=== PATIENT | female | born 1940 | race Caucasian/White ===

== ENCOUNTER 2017-07-19 17:47 | Emergency (ER) | payer MEDICARE, BC ==
[~2017-07-19] VITALS: Ht 154.9 cm; Wt 59.9 kg
[2017-07-19] MEDS ORDERED: HYDROCODONE/APAP 5-325MG TABLET PO ONE (18:00)
[2017-07-19] MEDS ORDERED: HYDROCODONE/APAP 5-325MG TABLET ONE (18:07)
--- NOTE | 2017-07-19 19:01 | NUR ---
DONITA ADMIN EARLIER, PT POSITIONED FOR COMFORT, PRESENTLY AWAITING FOR CT ESULTS, SBAR REPORT TO JOHNNIE GALLOWAY
--- NOTE | 2017-07-19 19:31 | NUR ---
called [facility] for transport. ETA 30 min. Trip #[id number]
[2017-07-19 20:13] VITALS: BP 144/69
--- NOTE | 2017-07-19 20:36 | NUR ---
Patient discharged to home in stable conditon. Written and verbal after care instructions given. Patient verbalizes understanding of instructions. Patient left ER via ambulnz. VSS. All belongings with pt.
== END 2017-07-19 20:42 | disposition home or self-care (01) ==
LOC: ER 17:52
DX: S22.31XA Fracture of one rib, right side, initial encounter for closed fracture (principal); S20.211A Contusion of right front wall of thorax, initial encounter; G89.29 Other chronic pain; M54.9 Dorsalgia, unspecified; Z88.0 Allergy status to penicillin; Z88.2 Allergy status to sulfonamides; Z88.1 Allergy status to other antibiotic agents; W06.XXXA Fall from bed, initial encounter; Y93.89 Activity, other specified; Y92.89 Other specified places as the place of occurrence of the external cause; Y99.8 Other external cause status
CPT/HCPCS: 71250; A4663

== ENCOUNTER 2017-11-29 12:43 | Emergency (ER) | payer MEDICARE, BC ==
[~2017-11-29] VITALS: Ht 154.9 cm; Wt 56.2 kg
--- NOTE | 2017-11-29 13:18 | NUR ---
PT IS IN ROOM #1B. DR EDWARDS EVALUATED THE PT.
[2017-11-29] MEDS ORDERED: IV NORMAL SALINE 1000 ML BAG IV ONE (13:30)
[2017-11-29 13:33] LABS: BASOPHILS % (AUTO) 0.2 % (0.0-2.0); EOSINOPHILS % (AUTO) 0.2 % (0.0-7.0); HEMATOCRIT 31.3 % (31.2-41.9); HEMOGLOBIN 10.9 g/dL (10.9-14.3); LYMPHOCYTES # (AUTO) 0.2 K/uL (20.0-40.0); LYMPHOCYTES % (AUTO) 2.3 % (20.5-51.5); MEAN CORPUSCULAR HEMOGLOBIN 31.9 uug (24.7-32.8); MEAN CORPUSCULAR HGB CONC 35 g/dL (32.3-35.6); MEAN CORPUSCULAR VOLUME 91.5 fL (75.5-95.3); MONOCYTES # (AUTO) 0.5 K/uL (2.0-10.0); MONOCYTES % (AUTO) 5.9 % (0.0-11.0); NEUTROPHILS # (AUTO) 7.4 K/uL (1.8-8.9); NEUTROPHILS % (AUTO) 91.4 % (38.5-71.5); PLATELET COUNT (AUTO) 246 K/uL (179-408); RED BLOOD CELL COUNT(AUTO) 3.42 MIL/uL (3.63-4.92); WHITE BLOOD COUNT (AUTO) 8.1 K/uL (3.8-11.8)
[2017-11-29 13:44] LABS: CARBON DIOXIDE 20 mmol/L (21-32); CHLORIDE 99 mmol/L (98-107); CREATININE 1.5 mg/dL (0.6-1.3); GLUCOSE 112 mg/dL (74-106); POTASSIUM 3.1 mmol/L (3.5-5.1); UREA NITROGEN, BLOOD 33 mg/dL (7-18)
[2017-11-29 13:50] LABS: ALANINE AMINOTRANSFERASE 32 U/L (14-59); ALKALINE PHOSPHATASE 86 U/L (50-136); ASPARTATE AMINOTRANSFERASE 35 U/L (15-37); BILIRUBIN,DIRECT 0.1 mg/dL (0.0-0.2); BILIRUBIN,TOTAL 0.3 mg/dL (0.2-1.0); LIPASE 61 U/L (73-393); TOTAL PROTEIN, SERUM 6.6 g/dL (6.4-8.2)
[2017-11-29] MEDS ORDERED: GLUC100017 PO (14:15)
[2017-11-29] MEDS ORDERED: LEVO1CAP3 PO (14:15)
[2017-11-29] MEDS ORDERED: MULT-1201 PO (14:15)
[2017-11-29] MEDS ORDERED: AMLO10TA6 PO (14:15)
[2017-11-29] MEDS ORDERED: NASOCORT (14:15)
[2017-11-29] MEDS ORDERED: PROP15DR EACHEYE (14:15)
[2017-11-29] MEDS ORDERED: PANT40TA2 PO (14:15)
[2017-11-29] MEDS ORDERED: POTA10TA15 PO (14:15)
[2017-11-29] MEDS ORDERED: PRAV20TA4 PO (14:15)
[2017-11-29] MEDS ORDERED: DIAZIDE PO (14:15)
[2017-11-29] MEDS ORDERED: BUPR300T52 PO (14:15)
[2017-11-29] MEDS ORDERED: FLUO20CA36 PO (14:15)
[2017-11-29] MEDS ORDERED: TRAZ-214 PO (14:15)
[2017-11-29] MEDS ORDERED: [UNRECOGNIZED DRUG - OTHER] PO (14:30)
[2017-11-29] MEDS ORDERED: SLOW FE IRON PO (14:30)
[2017-11-29] MEDS ORDERED: ASPI81TA31 PO (14:30)
[2017-11-29] MEDS ORDERED: CHOL200078 PO (14:30)
[2017-11-29] MEDS ORDERED: CALC500T3 PO (14:30)
[2017-11-29] MEDS ORDERED: CYAN500T2 PO (14:30)
[2017-11-29] MEDS ORDERED: POTASSIUM CHLORIDE 20 MEQ TAB.PRT.SR PO ONE (15:00)
[2017-11-29] MEDS ORDERED: POTASSIUM CHLORIDE 20 MEQ TAB.PRT.SR ONE (15:00)
[2017-11-29 15:10] VITALS: BP 110/68
--- NOTE | 2017-11-29 15:11 | NUR ---
DCD instructions and prescription given to pt. and who verbalized understanding. Pt. wheeled to the front and takne via private car by .
== END 2017-11-29 15:13 | disposition home or self-care (01) ==
LOC: ER 12:43
DX: E87.6 Hypokalemia (principal); R19.7 Diarrhea, unspecified; I10 Essential (primary) hypertension; E78.5 Hyperlipidemia, unspecified; K21.9 Gastro-esophageal reflux disease without esophagitis; G89.29 Other chronic pain; M54.9 Dorsalgia, unspecified; Z88.0 Allergy status to penicillin; Z88.1 Allergy status to other antibiotic agents; Z88.2 Allergy status to sulfonamides
CPT/HCPCS: 36415; 71045; 74176; 80048; 80076; 83690; 84484; 85025; 85730; 93005; 96360; 99285; A4663; J7030; 70030-TC

== ENCOUNTER 2017-12-13 16:52 | Emergency (ER) | payer MEDICARE, BC ==
[~2017-12-13] VITALS: Ht 154.9 cm; Wt 55.3 kg
[~2017-12-13 16:52] MED LIST: AMLO10TA6 PO; ASPI81TA31 PO; BUPR300T52 PO; CALC500T3 PO; CHOL200078 PO; CYAN500T2 PO; DIAZIDE PO; FLUO20CA36 PO; GLUC100017 PO; LEVO1CAP3 PO; MULT-1201 PO; NASOCORT; PANT40TA2 PO; POTA10TA15 PO; PRAV20TA4 PO; PROP15DR EACHEYE; SLOW FE IRON PO; TRAZ-214 PO; [UNRECOGNIZED DRUG - OTHER] PO
[2017-12-13] MEDS ORDERED: LIDOCAINE HCL 1% 20 ML VIAL TP ONE (17:15)
--- NOTE | 2017-12-13 17:30 | NUR ---
PTIS IN ROOM #2B. DR HESS EVALUATED THE PT.
[2017-12-13] MEDS ORDERED: TDAP DIPH,PERTUSS,TET VAC/PF 0.5 ML DISP.SYRIN IM ONE ×2 (17:45→17:50)
--- NOTE | 2017-12-13 18:15 | NUR ---
PT WAS D/C TO HOME. D/C INSTRUCTIONS GIVEN TO THE PT.
[2017-12-13 18:16] VITALS: BP 141/82
== END 2017-12-13 18:36 | disposition home or self-care (01) ==
LOC: ER 16:55
DX: S51.011A Laceration without foreign body of right elbow, initial encounter (principal); S20.211A Contusion of right front wall of thorax, initial encounter; I10 Essential (primary) hypertension; E78.5 Hyperlipidemia, unspecified; K21.9 Gastro-esophageal reflux disease without esophagitis; G89.29 Other chronic pain; M54.9 Dorsalgia, unspecified; Z88.0 Allergy status to penicillin; Z88.2 Allergy status to sulfonamides; Z88.1 Allergy status to other antibiotic agents; W10.9XXA Fall (on) (from) unspecified stairs and steps, initial encounter; Y93.89 Activity, other specified; Y92.89 Other specified places as the place of occurrence of the external cause; Y99.8 Other external cause status
CPT/HCPCS: 12002; 71250; 73080; 90471; 90715; 99284; J3490; A4663

== ENCOUNTER 2017-12-15 11:29 | Emergency (ER) | payer MEDICARE, BC ==
[~2017-12-15] VITALS: Ht 154.9 cm; Wt 55.3 kg
--- NOTE | 2017-12-15 11:47 | NUR ---
Dr cabral at the bedside for MSE. wound dressing on RT elbow sutures are removed by Md. Site has no S/S infection.
--- NOTE | 2017-12-15 11:55 | NUR ---
Patient discharged to home in stable conditon. Written and verbal after care instructions given. Patient verbalizes understanding of instructions.
--- NOTE | 2017-12-15 11:57 | NUR ---
Suture site cleaned and dressed per MD order.
--- NOTE | 2017-12-15 12:04 | NUR ---
Patient discharged to home in stable conditon. Written and verbal after care instructions given. Patient verbalizes understanding of instructions.
== END 2017-12-15 12:04 | disposition home or self-care (01) ==
LOC: ER 11:34
DX: S51.011D Laceration without foreign body of right elbow, subsequent encounter (principal); Z48.01 Encounter for change or removal of surgical wound dressing; I10 Essential (primary) hypertension; E78.5 Hyperlipidemia, unspecified; K21.9 Gastro-esophageal reflux disease without esophagitis; G89.29 Other chronic pain; M54.9 Dorsalgia, unspecified; Z88.0 Allergy status to penicillin; Z88.1 Allergy status to other antibiotic agents; Z88.2 Allergy status to sulfonamides; X58.XXXD Exposure to other specified factors, subsequent encounter
CPT/HCPCS: A4663

== ENCOUNTER 2017-12-22 15:45 | Emergency (ER) | payer MEDICARE, BC ==
[~2017-12-22] VITALS: Ht 152.4 cm; Wt 54.4 kg
--- NOTE | 2017-12-22 16:24 | NUR ---
patient presents to er alert, oriented x4 for right elbow suture removal, no infection, no odor d/c home without d/c instructions.
--- NOTE | 2017-12-22 16:45 | NUR ---
Patient discharged to home in stable conditon. Verbal after care instructions given. Patient verbalizes understanding of instructions.
== END 2017-12-22 16:45 | disposition home or self-care (01) ==
LOC: ER 15:45
DX: S51.011D Laceration without foreign body of right elbow, subsequent encounter (principal); Z48.02 Encounter for removal of sutures; I10 Essential (primary) hypertension; E78.5 Hyperlipidemia, unspecified; K21.9 Gastro-esophageal reflux disease without esophagitis; G89.29 Other chronic pain; M54.9 Dorsalgia, unspecified; Z88.0 Allergy status to penicillin; Z88.1 Allergy status to other antibiotic agents; Z88.2 Allergy status to sulfonamides; Z79.82 Long term (current) use of aspirin; X58.XXXD Exposure to other specified factors, subsequent encounter
CPT/HCPCS: A4663

== ENCOUNTER 2023-08-30 05:56 | Emergency (ER) | payer MEDICARE, BC ==
[~2023-08-30] VITALS: Ht 162.6 cm; Wt 54.4 kg
[~2023-08-30 05:56] MED LIST changes: +AMLO10TA59 PO; -AMLO10TA6 PO; -CALC500T3 PO; +CALC500T89 PO; -CYAN500T2 PO; +CYAN500T9 PO; -TRAZ-214 PO; +TRAZ-257 PO
[2023-08-30] MEDS ORDERED: LIDOCAINE 1%-EPI 1:100,000 20 ML VIAL ONE (06:06)
[2023-08-30] MEDS ORDERED: NEOMY/BACITRAC/POLYMI OINT 28.35 GM TUBE ONE (06:25)
[2023-08-30] MEDS ORDERED: NEOMY/BACITRA/POLYMYXIN B OINT UD PACKET TP ONE ×2 (06:26→06:35)
[2023-08-30] MEDS: NEOMY/BACITRA/POLYMYXIN B OINT UD PACKET TP ONE (06:56)
[2023-08-30] MEDS: LIDOCAINE 1%-EPI 1:100,000 20 ML VIAL IJ ONE (07:10)
[2023-08-30] MEDS ORDERED: TDAP DIPH,PERTUSS,TET VAC/PF 0.5 ML DISP.SYRIN IM ONE ×2 (07:35→07:40)
[2023-08-30] MEDS: TDAP DIPH,PERTUSS,TET VAC/PF 0.5 ML DISP.SYRIN IM ONE (07:43)
[2023-08-30 08:29] VITALS: BP 166/72; TEMP 98; O2SAT 98
== END 2023-08-30 08:49 | disposition home or self-care (01) ==
LOC: ER 06:01
DX: S06.0X0A Concussion without loss of consciousness, initial encounter (principal); S61.012A Laceration without foreign body of left thumb without damage to nail, initial encounter; I10 Essential (primary) hypertension; E78.5 Hyperlipidemia, unspecified; K21.9 Gastro-esophageal reflux disease without esophagitis; G89.29 Other chronic pain; M54.9 Dorsalgia, unspecified; Z79.82 Long term (current) use of aspirin; Z98.890 Other specified postprocedural states; Z79.899 Other long term (current) drug therapy; Z60.2 Problems related to living alone; W01.0XXA Fall on same level from slipping, tripping and stumbling without subsequent striking against object, initial encounter; Y93.89 Activity, other specified; Y92.89 Other specified places as the place of occurrence of the external cause; Y99.8 Other external cause status; Z88.0 Allergy status to penicillin; Z88.2 Allergy status to sulfonamides; Z88.5 Allergy status to narcotic agent
CPT/HCPCS: 99285; 70450; 12001; 90715; 90471; J3490; A4606; A4663

== ENCOUNTER 2023-11-04 13:39 | Emergency (ER) | payer MEDICARE, BC ==
[~2023-11-04] VITALS: Ht 154.9 cm; Wt 61.2 kg
[~2023-11-04 13:39] MED LIST changes: -DIAZIDE PO; -LEVO1CAP3 PO; -NASOCORT; -PANT40TA2 PO; -POTA10TA15 PO; -PRAV20TA4 PO; -PROP15DR EACHEYE; -[UNRECOGNIZED DRUG - OTHER] PO
[2023-11-04] MEDS ORDERED: LIDOCAINE 1%-EPI 1:100,000 20 ML VIAL ONE (14:24)
[2023-11-04] MEDS: LIDOCAINE 1%-EPI 1:100,000 20 ML VIAL IJ ONE (14:36)
[2023-11-04 15:49] VITALS: BP 135/75; TEMP 98.3; O2SAT 97
== END 2023-11-04 15:50 | disposition home or self-care (01) ==
LOC: ER 13:39
DX: S01.81XA Laceration without foreign body of other part of head, initial encounter (principal); I10 Essential (primary) hypertension; E78.5 Hyperlipidemia, unspecified; K21.9 Gastro-esophageal reflux disease without esophagitis; Z79.82 Long term (current) use of aspirin; Z98.890 Other specified postprocedural states; Z79.899 Other long term (current) drug therapy; Z88.0 Allergy status to penicillin; Z88.2 Allergy status to sulfonamides; Z88.1 Allergy status to other antibiotic agents
CPT/HCPCS: 12004; 70450; 72125; 99284; J3490; A4606; A4663

== ENCOUNTER 2023-11-07 11:46 | Emergency (ER) | payer MEDICARE, BC ==
[~2023-11-07] VITALS: Ht 154.9 cm; Wt 61.2 kg
[2023-11-07 11:53] VITALS: O2SAT 97
== END 2023-11-07 13:22 | disposition home or self-care (01) ==
LOC: ER 11:46
DX: S01.81XA Laceration without foreign body of other part of head, initial encounter (principal); I11.9 Hypertensive heart disease without heart failure; E78.5 Hyperlipidemia, unspecified; K21.9 Gastro-esophageal reflux disease without esophagitis; Z79.82 Long term (current) use of aspirin; Z98.84 Bariatric surgery status; Z79.899 Other long term (current) drug therapy; Z88.0 Allergy status to penicillin; Z88.1 Allergy status to other antibiotic agents; Z88.2 Allergy status to sulfonamides; X58.XXXA Exposure to other specified factors, initial encounter; Y93.89 Activity, other specified; Y92.89 Other specified places as the place of occurrence of the external cause; Y99.8 Other external cause status
CPT/HCPCS: A4606; A4663

== ENCOUNTER 2023-11-13 13:33 | Emergency (ER) | payer MEDICARE, BC ==
[~2023-11-13] VITALS: Ht 152.4 cm; Wt 39.9 kg
[2023-11-13 14:18] VITALS: BP 123/50; O2SAT 100
== END 2023-11-13 14:18 | disposition home or self-care (01) ==
LOC: ER 13:34
DX: S01.81XD Laceration without foreign body of other part of head, subsequent encounter (principal); Z48.02 Encounter for removal of sutures; I10 Essential (primary) hypertension; E78.5 Hyperlipidemia, unspecified; K21.9 Gastro-esophageal reflux disease without esophagitis; Z79.82 Long term (current) use of aspirin; Z98.890 Other specified postprocedural states; Z79.899 Other long term (current) drug therapy; Z88.0 Allergy status to penicillin; Z88.2 Allergy status to sulfonamides; Z88.1 Allergy status to other antibiotic agents; X58.XXXD Exposure to other specified factors, subsequent encounter
CPT/HCPCS: A4606; A4663